=== PATIENT | female | born 1965 | race Caucasian/White ===

== ENCOUNTER 2017-09-20 10:19 | Day surgery (SDC) | payer BC ==
[2017-09-20] VITALS (10 sets, daily range): BP systolic 103–123; BP diastolic 57–80
[~2017-09-20] VITALS: Ht 172.7 cm; Wt 77.4 kg
[2017-09-20] MEDS ORDERED: MIDAZolam 1mg/ml 10ml vial IV ONE (10:45)
[2017-09-20] MEDS ORDERED: normal saline 1000ml 1,000 ML IV SCH (10:45)
[2017-09-20] MEDS ORDERED: fentaNYL/PF 50MCG/1 ML 2ML syringe IV ONE (10:45)
[2017-09-20] MEDS ORDERED: CHOL10002 PO (11:55)
[2017-09-20] MEDS ORDERED: MIDAZolam 5mg/ml 2ml vial IV ONE (11:55)
[2017-09-20] MEDS ORDERED: RIVA20TA PO (11:56)
[2017-09-20] MEDS ORDERED: METO100T14 PO (11:57)
[2017-09-20] MEDS ORDERED: ASPI-1264 PO (11:58)
== END 2017-09-20 15:35 | disposition home or self-care (01) ==
LOC: SSTAY O 10:19
PROVIDERS: ATTEND Internal Medicine Interventional Cardiology
DX: I48.91 Unspecified atrial fibrillation (principal)
CPT/HCPCS: 92960; 93005; J2250; J3010; J7030; A4620

== ENCOUNTER 2017-12-05 12:57 | Outpatient (CLI) | payer BC ==
[~2017-12-05] VITALS: Ht 172.7 cm; Wt 72.6 kg
[~2017-12-05 12:57] MED LIST: ASPI-1264 PO; CHOL10002 PO; METO100T14 PO; RIVA20TA PO
[2017-12-05 13:36] LABS: TOTAL HEMOGLOBIN 16.1 G/dl (12.0-16.0)
[2017-12-06] MEDS ORDERED: albuterol 2.5 MG/3 ML nebule NEB PRN (13:24)
== END 2017-12-05 23:59 | disposition home or self-care (01) ==
LOC: RT 12:57
PROVIDERS: ATTEND Specialist
DX: R94.2 Abnormal results of pulmonary function studies (principal); R06.02 Shortness of breath; F17.200 Nicotine dependence, unspecified, uncomplicated; Z79.899 Other long term (current) drug therapy
CPT/HCPCS: 85018; 94060; 94640; 94727; 94729